=== PATIENT | male | born 1970 | race Caucasian/White ===

== ENCOUNTER 2025-02-28 19:16 | Emergency (ER) | payer OTHER ==
[~2025-02-28] VITALS: Ht 170.2 cm; Wt 97.5 kg
[2025-02-28 20:01] LABS: BASOPHILS ABSOLUTE AUTO 0.03 K/mm3 (0.00-0.23); BASOPHILS PERCENT AUTO 1 % (0-2); EOSINOPHILS ABSOLUTE AUTO 0.27 K/mm3 (0.00-0.68); EOSINOPHILS PERCENT AUTO 5 % (0-6); Hematocrit 43.2 % (37.0-53.0); Hemoglobin 13.9 g/dL (13.5-17.5); IMMATURE GRAN ABSOLUTE AUTO 0.02 K/mm3 (0.00-0.10); IMMATURE GRAN PERCENT AUTO 0 % (0-1); LYMPHOCYTES ABSOLUTE AUTO 1.73 K/mm3 (0.84-5.20); LYMPHOCYTES PERCENT AUTO 30 % (21-46); MONOCYTES ABSOLUTE AUTO 0.76 K/mm3 (0.16-1.47); MONOCYTES PERCENT AUTO 13 % (4-13); Mean Corpuscular HGB Conc 32.2 g/dL (31.5-36.5); Mean Corpuscular Volume 84 fL (80-100); NEUTROPHILS ABSOLUTE AUTO 2.94 K/mm3 (1.96-9.15); NEUTROPHILS PERCENT AUTO 51 % (41-73); NRBC ABSOLUTE 0.00 K/mm3 (0.00-0.02); NRBC Auto 0.0 /100 WBC (0.0-0.2); Platelet Count 241 K/mm3 (150-400); RDW Coefficient Variation 14.6 % (11.7-14.2); RDW Standard Deviation 45.1 fL (35.1-46.3)
[2025-02-28 20:30] LABS: Alanine Aminotransfer (ALT/SGP 73.0 U/L (12-78); Albumin, Blood 3.8 g/dL (3.4-5.0); Albumin/Globulin Ratio 1.0 (0.8-1.8); Anion Gap 7.0 mmol/L (3-11); Aspartate Aminotrans (AST/SGOT 55.0 U/L (12-37); Bilirubin, Total 0.4 mg/dL (0.1-1.0); Blood Urea Nitrogen 11.0 mg/dL (8-24); CO2, Blood 27.0 mmol/L (21-32); Calcium, Blood 9.5 mg/dL (8.5-10.1); Chloride, Blood 106.0 mmol/L (98-108); Creatinine, Blood 0.97 mg/dL (0.60-1.20); Globulin, Blood 3.7 g/dL (2.2-4.0); Glucose, Blood 108.0 mg/dL (70-99); Potassium, Blood 3.7 mmol/L (3.5-5.5); Sodium, Blood 136.0 mmol/L (136-145); Total Protein, Blood 7.5 g/dL (6.4-8.2)
[2025-02-28] MEDS ORDERED: Ketorolac Tromethamine 15mg Vial IV ONE (23:00)
[2025-02-28] MEDS ORDERED: Ondansetron HCl 2 MG / ML 2ML Vial IV ONE (23:00)
[2025-02-28] MEDS ORDERED: ONDA4ODT MM (23:47)
== END 2025-03-01 00:09 | disposition home or self-care (01) ==
LOC: ER 19:16
PROVIDERS: Emergency Medicine
DX: R51.9 Headache, unspecified (principal); R11.0 Nausea; H53.2 Diplopia; I10 Essential (primary) hypertension
CPT/HCPCS: 70450; 80053; 85025; 96374; 96375; 99284-25; J1885; J2405; J7120

== ENCOUNTER → 2025-03-01 14:53 | Emergency (ER) | payer SELFPAY ==
[~2025-03-01] VITALS: Ht 170.2 cm; Wt 114.8 kg
[~2025-03-01 14:53] MED LIST: Fluorescein Sod 1MG Opth Strips RIGHTEYE ONE; ONDA4ODT MM; Tetracaine HCl/Pf 0.5% Opth Soln 4 ml BOTHEYES ONE
[2025-03-02 00:01] VITALS: BP 161/108
== END | disposition home or self-care (01) ==
LOC: ER 14:53
DX: H57.11 Ocular pain, right eye (principal); H53.2 Diplopia; R51.9 Headache, unspecified
CPT/HCPCS: A9270

== ENCOUNTER 2025-03-01 17:25 | Inpatient (IN) | payer OTHER ==
[~2025-03-01] VITALS: Ht 177.8 cm; Wt 115.3 kg
[~2025-03-01 17:25] MED LIST changes: -Fluorescein Sod 1MG Opth Strips RIGHTEYE ONE; -Tetracaine HCl/Pf 0.5% Opth Soln 4 ml BOTHEYES ONE
[2025-03-01] MEDS ORDERED: NS 1,000 ML IV SCH (18:00)
[2025-03-01 18:30] LABS: BASOPHILS ABSOLUTE AUTO 0.03 K/mm3 (0.00-0.23); BASOPHILS PERCENT AUTO 0 % (0-2); EOSINOPHILS ABSOLUTE AUTO 0.24 K/mm3 (0.00-0.68); EOSINOPHILS PERCENT AUTO 3 % (0-6); Hematocrit 42.7 % (37.0-53.0); Hemoglobin 13.6 g/dL (13.5-17.5); IMMATURE GRAN ABSOLUTE AUTO 0.01 K/mm3 (0.00-0.10); IMMATURE GRAN PERCENT AUTO 0 % (0-1); LYMPHOCYTES ABSOLUTE AUTO 1.76 K/mm3 (0.84-5.20); LYMPHOCYTES PERCENT AUTO 25 % (21-46); MONOCYTES ABSOLUTE AUTO 0.84 K/mm3 (0.16-1.47); MONOCYTES PERCENT AUTO 12 % (4-13); Mean Corpuscular HGB Conc 31.9 g/dL (31.5-36.5); Mean Corpuscular Volume 84 fL (80-100); NEUTROPHILS ABSOLUTE AUTO 4.21 K/mm3 (1.96-9.15); NEUTROPHILS PERCENT AUTO 60 % (41-73); NRBC ABSOLUTE 0.00 K/mm3 (0.00-0.02); NRBC Auto 0.0 /100 WBC (0.0-0.2); Platelet Count 241 K/mm3 (150-400); RDW Coefficient Variation 14.5 % (11.7-14.2); RDW Standard Deviation 44.6 fL (35.1-46.3)
[2025-03-01 18:54] LABS: C-REACTIVE PROTEIN, EXT RANGE 1.09 mg/dL (0.000-0.300)
[2025-03-01 18:55] LABS: Alanine Aminotransfer (ALT/SGP 72.0 U/L (12-78); Albumin, Blood 3.6 g/dL (3.4-5.0); Albumin/Globulin Ratio 0.9 (0.8-1.8); Anion Gap 8.0 mmol/L (3-11); Aspartate Aminotrans (AST/SGOT 52.0 U/L (12-37); Bilirubin, Total 0.5 mg/dL (0.1-1.0); Blood Urea Nitrogen 12.0 mg/dL (8-24); CO2, Blood 28.0 mmol/L (21-32); Calcium, Blood 9.3 mg/dL (8.5-10.1); Chloride, Blood 100.0 mmol/L (98-108); Creatinine, Blood 1.09 mg/dL (0.60-1.20); Globulin, Blood 3.8 g/dL (2.2-4.0); Glucose, Blood 93.0 mg/dL (70-99); Potassium, Blood 3.8 mmol/L (3.5-5.5); Sodium, Blood 132.0 mmol/L (136-145); Total Protein, Blood 7.4 g/dL (6.4-8.2)
[2025-03-01] MEDS ORDERED: LORazepam 2 MG/ML 1ML Injection IV ONE (18:55)
[2025-03-01] MEDS ORDERED: FLU VACC TS2025-26(6MOS UP)/PF 45 MCG/0.5 ML SYRINGE IM SCH (22:40)
[2025-03-01] MEDS ORDERED: Ondansetron HCl 2 MG / ML 2ML Vial IV PRN (22:40)
[2025-03-02] VITALS (13 sets, daily range): BP systolic 141–177; BP diastolic 84–119
--- NOTE | 2025-03-02 02:42 | NUR ---
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 PT ASYMPTOMATIC, DENIES CHEST PAIN OR SOB. PT HAS BEEN BRADYCARDIC ON TELE AND HYPERTENSIVE. ALTHOUGH BLOOD PRESSURE IS LOWER THAN IT WAS IN THE ER. DR. CARREON CALLED AND NOTIFIED OF TELE CHANGE, THAT HE WENT INTO SECOND DEGREE HB TYPE 2 FOR A FEW BEATS AND THEN BACK INTO NSR. ALSO NOTIFIED HIM OF HYPERTENSION. HE STATES JUST TO MONITOR FOR NOW AND IF HE HAS ANY MORE EVENTS THAT ARE PROLONGED TO NOTIFY AND HE WILL FOLLOW UP WITH A SENIOR MANAGER MERGERS & ACQUISITIONS CONSULT. HOWEVER AT THIS TIME NO NEW ORDERS. AT THIS TIME PT IS NSR IN THE 80'S ON TELE.
[2025-03-02 04:55] LABS: BASOPHILS ABSOLUTE AUTO 0.03 K/mm3 (0.00-0.23); BASOPHILS PERCENT AUTO 0 % (0-2); EOSINOPHILS ABSOLUTE AUTO 0.19 K/mm3 (0.00-0.68); EOSINOPHILS PERCENT AUTO 2 % (0-6); Hematocrit 40.5 % (37.0-53.0); Hemoglobin 13.4 g/dL (13.5-17.5); IMMATURE GRAN ABSOLUTE AUTO 0.01 K/mm3 (0.00-0.10); IMMATURE GRAN PERCENT AUTO 0 % (0-1); LYMPHOCYTES ABSOLUTE AUTO 1.78 K/mm3 (0.84-5.20); LYMPHOCYTES PERCENT AUTO 20 % (21-46); MONOCYTES ABSOLUTE AUTO 1.01 K/mm3 (0.16-1.47); MONOCYTES PERCENT AUTO 12 % (4-13); Mean Corpuscular HGB Conc 33.1 g/dL (31.5-36.5); Mean Corpuscular Volume 84 fL (80-100); NEUTROPHILS ABSOLUTE AUTO 5.80 K/mm3 (1.96-9.15); NEUTROPHILS PERCENT AUTO 66 % (41-73); NRBC ABSOLUTE 0.00 K/mm3 (0.00-0.02); NRBC Auto 0.0 /100 WBC (0.0-0.2); Platelet Count 244 K/mm3 (150-400); RDW Coefficient Variation 14.1 % (11.7-14.2); RDW Standard Deviation 42.8 fL (35.1-46.3)
[2025-03-02 05:13] LABS: Alanine Aminotransfer (ALT/SGP 64.0 U/L (12-78); Albumin, Blood 3.4 g/dL (3.4-5.0); Albumin/Globulin Ratio 0.9 (0.8-1.8); Anion Gap 9.0 mmol/L (3-11); Aspartate Aminotrans (AST/SGOT 52.0 U/L (12-37); Bilirubin, Total 0.7 mg/dL (0.1-1.0); Blood Urea Nitrogen 12.0 mg/dL (8-24); CO2, Blood 26.0 mmol/L (21-32); Calcium, Blood 9.0 mg/dL (8.5-10.1); Chloride, Blood 99.0 mmol/L (98-108); Creatinine, Blood 1.05 mg/dL (0.60-1.20); Globulin, Blood 3.6 g/dL (2.2-4.0); Glucose, Blood 101.0 mg/dL (70-99); Magnesium, Blood 1.8 mg/dL (1.6-2.4); Potassium, Blood 3.6 mmol/L (3.5-5.5); Sodium, Blood 130.0 mmol/L (136-145); Total Protein, Blood 7.0 g/dL (6.4-8.2)
--- NOTE | 2025-03-02 06:32 | NUR ---
SHIFT SUMMARY PT ER ADMIT THIS SHIFT FOR OCCULAR PALSY. PT LETHARGIC UPON ADMISSION, WOULD WAKE UP BREIFLY AND EASILY TO VERBAL STIMULI AND THEN FALLS BACK TO SLEEP. PT HAS BEEN HYPERTENSIVE, PROVIDER AWARE. PT HAS BEEN OBSERVATION STATUS, WITH PLANS FOR MORE IMAGING TODAY. R EYE IS PUFFY, R PUPIL IS ENLARGED AND NOT REACTIVE TO LIGHT. PT ALSO REPORTING DOUBLE VISION. ON TELE T/O THE NIGHT WITH BRADYCARDIA IN THE 40'S, AND SOME INTERMITTENT EPISODES OF SECOND DEGREE HB TYPE 2. DR. CARREON MADE AWARE AND WILL SPEAK WITH [facility] ABOUT POSSIBLY ORDERING A CARDIOLOGY CONSULT. PT A/OX4, SPEAK CLEAR, INDEPENDENT IN THE ROOM. DENIES CHEST PAIN, SOB, NV. BED IN LOWEST POSITION, CALL LIGHT WITHIN REACH.
[2025-03-02] MEDS ORDERED: Sod Ferric Gluc Complx/Sucrose 125 MG in NS 100 ML IV SCH (10:30)
[2025-03-02] MEDS ORDERED: LORazepam 2 MG/ML 1ML Injection IV SCH (10:30)
--- NOTE | 2025-03-02 11:59 | NUR ---
PT BACK TO RM 218 FROM MRI VERY DROWSY BUT ANSWERS QUESTIONS. TRANSFERRED PT FROM [facility] TO BED. CALL LIGHT IN REACH.
--- NOTE | 2025-03-02 12:15 | NUR ---
DR MALDONADO IN TO SEE PT. DISCUSSED BP WITH DR MALDONADO. PT HAD EPISODE OF EMESIS DURING MRI; REPORTED TO DR MALDONADO.
[2025-03-02 12:30] LABS: IMMATURE RETIC FRACTION 12.1 % (2.3-16.0); RETIC HGB EQUIVALENT 30.3 pg (28.20-36.60); RETICULOCYTE COUNT PERCENT 1.73 % (0.50-2.50)
[2025-03-02 13:38] LABS: Ferritin, Serum 122.0 ng/mL (26-388); Total Iron Binding Capacity 423.0 ug/dL (250-450)
--- NOTE | 2025-03-02 15:06 | NUR ---
GAS METER CHECKER REPORTED PT HR STACH IN 130S. WENT TO SEE PT AND PT WAS SLEEPING. WOKE TO VOICE BRIEFLY AND SAID HEAD FELT "TERRIBLE" WHEN ASKED. OFFERED TYLENOL, PT DECLINED. WHEN ASKING PT IF FELT HEART RACING, PT FELL BACK ASLEEP MID CONVERSATION. NOTIFIED DR MALDONADO.
--- NOTE | 2025-03-02 15:31 | NUR ---
DR MALDONADO IN TO SEE PT PT WOKE TO VOICE, STATED PAIN BEHIND R EYE "DIFFERENT" AND THEN FELL ASLEEP IN MID CONVERSATION. DR MALDONADO ORDERED CONTINUOUS PULSE OX WHICH WAS PLACED. PT SLEEPING ON L SIDE. BREATHING E/U. WHEN CALLED FOR F/U HR TO INTERNATIONAL LOGISTICS MANAGER, WAS ADVISED PT SR @ 78.
--- NOTE | 2025-03-02 16:08 | NUR ---
SVT/UPDATE CONT's TO BE LETHARGIC, FALLING ASLEEP MID-SENTENCE. TELE NOW SHOWING SVT IN 140s. HTN CONTINUES, FEBRILE, BREATHING PATTERN IS IRREGULAR. MD NOTIFIED ABOUT THIS. PCU STATUS NOW.
[2025-03-02 17:16] LABS: Follicle Stimulating Hormone 1.3 mIU/ml (0.7-10.8); Thyroid Stimulating Hormone 2.56 uIU/mL (0.360-4.800)
--- NOTE | 2025-03-02 17:41 | NUR ---
"Spiritual care Visit | Pt. family request Pt. is not awake when I first visit, but his daughter and granddaughter are present. At first the Pt. is not rousable, so the daughter and I met in the hallway and considered matters of gilmar and belief with regard to the Pt. Held hands with daughter and prayed for the Pt. As I was walking away the Pt. began to wake, and his granddaughter brought this hydraulics teacher back to the Pt. Pt. displayed evidence of somonolence, and was able to respond to my welcome. Prayed with Pt. and let family know that I would follow up with Pt. in the morning. Pt. nodded his head in agreement. Pts. daughter verbalized gratitude for the spiritual care visit."
--- NOTE | 2025-03-02 17:58 | NUR ---
report given to jeremy leone rn and pt transferred to pcu 12.
--- NOTE | 2025-03-02 18:07 | NUR ---
Pt arrived from 218. lethargic, Sinus rhythm 73 with short burst of sinus tachycardia, 120 bpm which was brief and self resolving. Blood pressure is slightly high. Febrile, 101 temporally. Awakens to conversation, able to sit up and take sips of water. Spo2 90-93% on room air. Significant other says she has observed that he has sleep apnea at home. Noted that the pt is having some sleep apnea while here in PCU [address]. contacted Dr. Hernandez and we are expecting labs to be ordered now.
[2025-03-02] MEDS ORDERED: NS 1,000 ML IV SCH ×2 (18:10)
[2025-03-02] MEDS ORDERED: NS 1,000 ML IV ONE (18:10)
--- NOTE | 2025-03-02 18:13 | NUR ---
Monitoring ETCo2 and sleep apnea is observed in the respiratory waveform.
--- NOTE | 2025-03-02 18:42 | NUR ---
Pt only voided less than 10 cc. bladder scan to be done soon.
--- NOTE | 2025-03-02 18:42 | NUR ---
IV fluids started. Giving NS bolus.
[2025-03-02 19:15] LABS: pH Blood Venous 7.38 (7.34-7.37)
--- NOTE | 2025-03-02 22:30 | NUR ---
ASSUMPTION OF CARE THIS RN ASSUMED CARE OF PATIENT AT 1900. PT LETHARGIC BUT EASILY AROUSABLE WITH VERBAL STIMULI. ANSWERING QUESTIONS APPROPRIATELY. RT PUPIL CONTINUES TO HAVE NO RESPONSE TO LIGHT AND WITH FIXED DILATION. SWELLING NOTED TO EYELID. SCOTT, EQUAL BILATERALLY. COMPLETED 2L BOLUS AND STARTED CONTINUOUS FLUIDS PER EMAR. PT CALLING APPROPRIATELY AND AMBULATING TO BATHROOM WITH STEADY GAIT. DARK URINE NOTED. SA/SR NOTED ON MONITOR WITH OCCASIONAL RUNS OF SVT. PT DENIES CHEST PAIN/PRESSURE. HX OF KARLOS NOTED. PT ON RA WITH SPO2 >92%. PERIODS OF APNEA AND SNORE NOTED. VBG COMPLETED, SEE RESULTS. BP STABLE WITH SBP 150'S. PT DENIES PAIN AT THIS TIME. MEDICATED PREVIOUSLY FOR FEVER WITH TYLENOL. NONE NOTED AT THIS TIME. BED IN LOWEST POSITION AND CALL LIGHT WITHIN REACH.
[2025-03-03] VITALS (33 sets, daily range): BP systolic 122–209; BP diastolic 70–155
[2025-03-03 03:27] LABS: BASOPHILS ABSOLUTE AUTO 0.02 K/mm3 (0.00-0.23); BASOPHILS PERCENT AUTO 0 % (0-2); EOSINOPHILS ABSOLUTE AUTO 0.16 K/mm3 (0.00-0.68); EOSINOPHILS PERCENT AUTO 2 % (0-6); Hematocrit 40.3 % (37.0-53.0); Hemoglobin 13.3 g/dL (13.5-17.5); IMMATURE GRAN ABSOLUTE AUTO 0.03 K/mm3 (0.00-0.10); IMMATURE GRAN PERCENT AUTO 0 % (0-1); LYMPHOCYTES ABSOLUTE AUTO 1.81 K/mm3 (0.84-5.20); LYMPHOCYTES PERCENT AUTO 21 % (21-46); MONOCYTES ABSOLUTE AUTO 1.27 K/mm3 (0.16-1.47); MONOCYTES PERCENT AUTO 15 % (4-13); Mean Corpuscular HGB Conc 33.0 g/dL (31.5-36.5); Mean Corpuscular Volume 82 fL (80-100); NEUTROPHILS ABSOLUTE AUTO 5.42 K/mm3 (1.96-9.15); NEUTROPHILS PERCENT AUTO 62 % (41-73); NRBC ABSOLUTE 0.00 K/mm3 (0.00-0.02); NRBC Auto 0.0 /100 WBC (0.0-0.2); Platelet Count 197 K/mm3 (150-400); RDW Coefficient Variation 14.0 % (11.7-14.2); RDW Standard Deviation 41.0 fL (35.1-46.3)
[2025-03-03 03:51] LABS: Alanine Aminotransfer (ALT/SGP 46.0 U/L (12-78); Albumin, Blood 3.2 g/dL (3.4-5.0); Albumin/Globulin Ratio 0.8 (0.8-1.8); Anion Gap 11.0 mmol/L (3-11); Aspartate Aminotrans (AST/SGOT 40.0 U/L (12-37); Bilirubin, Total 1.0 mg/dL (0.1-1.0); Blood Urea Nitrogen 9.0 mg/dL (8-24); CO2, Blood 23.0 mmol/L (21-32); Calcium, Blood 8.4 mg/dL (8.5-10.1); Chloride, Blood 95.0 mmol/L (98-108); Creatinine, Blood 0.86 mg/dL (0.60-1.20); Globulin, Blood 3.9 g/dL (2.2-4.0); Glucose, Blood 100.0 mg/dL (70-99); Potassium, Blood 3.5 mmol/L (3.5-5.5); Sodium, Blood 125.0 mmol/L (136-145); Total Protein, Blood 7.1 g/dL (6.4-8.2)
--- NOTE | 2025-03-03 04:46 | NUR ---
SHIFT SUMMARY SEE PREVIOUS NOTE NO CHANGES TO NEURO. PT AMBULATING TO BATHROOM FREQUENTLY TO URINATE. STEADY GAIT NOTED. HTN NOTED. NOTIFIED MD WHEN SBP >170S, NO NEW ORDERS. SBP 150S AT THIS TIME. RUNS OF TACHYCARDIA NOTED ON MONITOR. OTHERWISE SR NOTED. MEDICATING PER EMAR FOR FEVER. PT REPORTING HEADACHE BUT QUICKLY FALLS ASLEEP WHEN NOT IN CONVERSATION. INFUSING NS PER EMAR. BED IN LOWEST POSITION AND CALL LIGHT WITHIN REACH. THIS RN WILL REPORT TO ONCNEO CORONADOFT RN.
--- NOTE | 2025-03-03 08:45 | NUR ---
Pt sitting on side of bed, pushed call light for help to use urinal. Voided 100cc. Only voiding small amounts, urine clear yellow. States has headache on the right side of head, and feels very tired. Does not feel like eating breakfast, he said.
--- NOTE | 2025-03-03 10:13 | NUR ---
medicated for fever. Protivin nauseated during po tylenol administration; given zofran. No vomiting.
--- NOTE | 2025-03-03 10:48 | NUR ---
Dr. moyer at the bedside/
--- NOTE | 2025-03-03 10:48 | NUR ---
new lab work ordered due to recurring fevers.
[2025-03-03] MEDS ORDERED: Polyethylene Glycol 3350 17 gm PO PRN (11:00)
[2025-03-03 11:41] LABS: Source, Urine Clean Catch
[2025-03-03 12:16] LABS: Bilirubin, Urine Neg (Neg); Color, Urine Yellow (P-Yellow); Glucose Qualitative, Urine Neg (Neg); Ketones, Urine 4+ (Neg); Leukocyte Esterase, Urine Neg (Neg); Protein, Urine 2+ (Neg); Specific Gravity, Urine 1.020 (1.003-1.022); Urobilinogen, Urine NORM (Normal)
[2025-03-03 12:37] LABS: White Blood Cells, Urine 0-2 /hpf (0-5)
[2025-03-03] MEDS ORDERED: HydrALAZINE HCl 20 MG / ML 1ML Vial IV PRN ×2 (14:15→18:30)
--- NOTE | 2025-03-03 14:17 | NUR ---
Pt continues to be sleepy, and more lethargic than he was this morning. Occasionally does not wake up to gentle stimuli easily. Awakening and using call light to urinate. Sinus rhythm at rest, sinus tachycardia 120-130 with activity of standing next to bed to urinate. Irregular breathing pattern noted, at times slow and at times 15 second apnea followed by deep quick breathing. Spo2 97-100% on 2 l/min of O2. BIPAP/CPAP protocol order from Dr. Hernandez; RT Nguyen notified of order. Pt noted to be hypertensive at this time. New order noted from Dr. Hernandez. Pt states that he was on an antihypertensive drug since 3 months ago, but it gave him flu like symptoms and he [facility] just [facility] was [facility] to [facility]. Oral care given.
[2025-03-03] MEDS ORDERED: ATOR10 PO (14:30)
[2025-03-03] MEDS ORDERED: AMLO5 PO (14:30)
[2025-03-03] MEDS ORDERED: Cosyntropin 0.25 MG / ML 1ML Vial IM SCH (15:35)
--- NOTE | 2025-03-03 18:26 | NUR ---
ASSUMED CARE OF PT AT 1748, PT RESPONDS TO VERBAL STIMULI, ABLE TO FOLLOW COMMANDS. UNABLE TO MAINTAIN CONVERSATION. PT C/O HEADACHE , UNABLE TO DESCRIBE PAIN, PT R PUPIL FIXED 4, SCLERA EDEMA NOTED. PT IS IN SR TO ST HR 80-110, HYPERTENSIVE SBP 170-200, CALLED ORDER FOR HYDRALIZINE CHANGED TO 10-20MG Q 4HRS FOR SBP GREATER THAN 170. PT ON 2L WITH SPO2 ABOVE 94% RR MID 20'S. PT BECOMES SOB WITH ACTIVITY. STANDING AT BEDSIDE FOR URINAL, CONTINENT. NO BM SINCE ADMISSION. NO WOUNDS NOTED, STEPHEN 2ND RN SKIN CHECK. 3% SALINE STARTED AT 30ML/HR TO R 18G AC, IV DRAWS BACK BLOOD, FLUSHES W/O COMPLICATIONS. PLAN OF CARE ONGOING.
--- NOTE | 2025-03-03 22:37 | NUR ---
PT PLACED ON BIPAP AT START OF SHIFT. TOLERATED FOR APPROX 2.5HR. LUNGS CLEAR TO AUSCULATION. ON GOING PERIODS OF APNEA. ON 2LPM NC REFUSED BIPAP AT THIS TIME. AWAITING BED AVAILABILITY TO TRANSFER TO [facility]. NEURO: RESPONDS TO VERBAL STIMULI. ORIENTED X 4. IMPULSIVE BUT ABLE TO MAKE HIS NEEDS KNOWN VERBALLY. MUMBLED SPEECH. R EYE FIXED AND REMAINS DILATED. PT REPORTS NO VISION PRESENT. SLCERA WIS RED WITH MODERATE SWELLING THAT HAS AN APPERANCE SIMILAR TO JELLY. HE IS UNABLE TO LIFT HIS R EYELID. LEFT EYE SCLERA IS RED, PUPILS REACTIVE TO LIGHT. PT STATES VISION IS VERY BLURRY. ABLE TO IDENTIFY LIGHT BUT UNABLE TO SEE FINGERS ON HAND DIRECTLY IN FRONT OF HIS EYE. MOVES EXTERMITES WELL. CARDIAC: STACH, HR 100-110S AT REST. INCREASING TO 130-150 WITH ACTIVITY. DENIES ANY CHEST PAIN. HTN SBP VARIABLE 140-190S. PULM: LUNGS CLEAR TO AUSCULATION, DIM IN THE BASES. +SHALLOW BREATHING. AND TACHYPNIC AT TIMES. CONTINUES TO HAVE PERIODS OF APNEA. BIPAP/NC BEING UTILIZED SEE ABOVE. GI: ABDOMEN IS SOFT/NON TENDER. NORMOACTIVE BOWEL TONES. : PUREWICK APPLIED. +URINE FREQUENCE WITH SMALL VOLUME 20-50ML. BLADDER SCAN DONE BY DAY SHIFT RN REVEALED NO URINARY RETENTION. SKIN INTACT. GIRLFRIEND STEPHENIE CAME AND BROUGHT PT A DUFFLE BAG WITH CLOTHING. PER PT OK TO GIVE UPDATES AND OBTAINED HER PHONE #. PER PT OK TO GIVE UPDATES ON HIS MEDICAL CONDITION. CHART UPDATED.
[2025-03-04] VITALS (27 sets, daily range): BP systolic 110–168; BP diastolic 69–112
--- NOTE | 2025-03-04 00:42 | NUR ---
REPORT GIVEN TO DANNY LIU AT [facility]. AWAITING TRANSPORT. PT TO TRANSFER TO [facility] NEURO 7, RM 9. CALL TO PT GIRLFRIEND AND NOTIFIED OF TRANSFER AND ROOM.
[2025-03-04 04:26] LABS: BASOPHILS ABSOLUTE AUTO 0.02 K/mm3 (0.00-0.23); BASOPHILS PERCENT AUTO 0 % (0-2); EOSINOPHILS ABSOLUTE AUTO 0.08 K/mm3 (0.00-0.68); EOSINOPHILS PERCENT AUTO 1 % (0-6); Hematocrit 37.7 % (37.0-53.0); Hemoglobin 12.9 g/dL (13.5-17.5); IMMATURE GRAN ABSOLUTE AUTO 0.02 K/mm3 (0.00-0.10); IMMATURE GRAN PERCENT AUTO 0 % (0-1); LYMPHOCYTES ABSOLUTE AUTO 1.43 K/mm3 (0.84-5.20); LYMPHOCYTES PERCENT AUTO 17 % (21-46); MONOCYTES ABSOLUTE AUTO 1.31 K/mm3 (0.16-1.47); MONOCYTES PERCENT AUTO 15 % (4-13); Mean Corpuscular HGB Conc 34.2 g/dL (31.5-36.5); Mean Corpuscular Volume 80 fL (80-100); NEUTROPHILS ABSOLUTE AUTO 5.73 K/mm3 (1.96-9.15); NEUTROPHILS PERCENT AUTO 67 % (41-73); NRBC ABSOLUTE 0.00 K/mm3 (0.00-0.02); NRBC Auto 0.0 /100 WBC (0.0-0.2); Platelet Count 194 K/mm3 (150-400); RDW Coefficient Variation 13.6 % (11.7-14.2); RDW Standard Deviation 40.0 fL (35.1-46.3)
[2025-03-04 04:44] LABS: Anion Gap 11.0 mmol/L (3-11); Blood Urea Nitrogen 9.0 mg/dL (8-24); CO2, Blood 21.0 mmol/L (21-32); Calcium, Blood 8.5 mg/dL (8.5-10.1); Chloride, Blood 94.0 mmol/L (98-108); Creatinine, Blood 0.89 mg/dL (0.60-1.20); Glucose, Blood 93.0 mg/dL (70-99); Potassium, Blood 3.4 mmol/L (3.5-5.5); Sodium, Blood 123.0 mmol/L (136-145)
[2025-03-04 06:52] LABS: ADRENOCORTICOTROPIC HORMONE 8.2 pg/mL (7.2-63.3)
[2025-03-04] MEDS ORDERED: Cosyntropin 0.25 MG / ML 1ML Vial IM SCH (08:00)
[2025-03-04] MEDS ORDERED: Cosyntropin 0.25 MG / ML 1ML Vial IM ONE ×2 (08:00→09:30)
[2025-03-04 13:37] LABS: IGF 1 Z SCORE CALCULATION 1.5; IGF1 INSULN-LIKE GROWTH FACT 1 192.0 ng/mL (61-210)
== END 2025-03-04 07:05 | disposition short-term general hospital (02) | DRG 644 ==
LOC: ER 17:25 → SURS 17:26 → PCU 17:26 → ERHOLD 17:26 → SURS 23:15 → PCU 03-02 17:38 → ICUE 03-03 14:57 → PCU 03-03 14:57 → ICUE 03-03 18:01
PROVIDERS: Emergency Medicine; Family Medicine; ADMIT Student in an Organized Health Care Education/Training Program
PROC: 5A09357 Assistance with Respiratory Ventilation, Less than 24 Consecutive Hours, Continuous Positive Airway Pressure (ICD-10-PCS; principal; 2025-03-04)
DX: E23.6 Other disorders of pituitary gland (principal); E87.1 Hypo-osmolality and hyponatremia; I47.10 Supraventricular tachycardia, unspecified; R65.10 Systemic inflammatory response syndrome (SIRS) of non-infectious origin without acute organ dysfunction; G47.31 Primary central sleep apnea; I49.5 Sick sinus syndrome; H49.01 Third [oculomotor] nerve palsy, right eye; E86.0 Dehydration; E86.1 Hypovolemia; D64.9 Anemia, unspecified; I95.9 Hypotension, unspecified
CPT/HCPCS: 36415; 70544; 70553; 71045; 80048; 80053; 81001; 82024; 82533; 82728; 82803; 83001; 83002; 83540; 83550; 83605; 83735; 83930; 83935; 84100; 84146; 84295; 84300; 84305; 84439; 84443; 84481; 85025; 85045; 85651; 86140; 93005; 93010; 94660; 94762; 96374; 96375; 96376; 99285-25; A9270; A9579; G0378; J0360; J2060; J2405; J7030